=== PATIENT | male | born 1965 | race Caucasian/White ===

== ENCOUNTER 2023-09-27 08:19 | Day surgery (SDC) | payer BC ==
[~2023-09-27] VITALS: Ht 172.7 cm; Wt 97.3 kg
[~2023-09-27 08:19] MED LIST: ALBU90OI INH; LISI5 PO; Lactated Ringer's 1,000 ML IV ONE
[2023-09-27] MEDS ORDERED: propofoL 50 ML IV ONE (08:50)
[2023-09-27] MEDS ORDERED: Lactated Ringer's 1,000 ML IV ONE (09:15)
[2023-09-27] MEDS ORDERED: FentaNYL Citrate 50 MCG/ML 2 ML Injection ONE (09:29)
[2023-09-27] MEDS ORDERED: ePHEDrine Sulfate 50 MG/ML 1ML Injection ONE (09:51)
[2023-09-27 10:19] VITALS: BP 114/90
== END 2023-09-27 10:19 | disposition home or self-care (01) ==
LOC: ORSCSDS 08:19
PROVIDERS: Internal Medicine Gastroenterology
PROC: 0DBK8ZX Excision of Ascending Colon, Via Natural or Artificial Opening Endoscopic, Diagnostic (ICD-10-PCS; principal; 2023-09-27 09:30)
DX: Z12.11 Encounter for screening for malignant neoplasm of colon (principal); Z86.010 Personal history of colon polyps; D12.2 Benign neoplasm of ascending colon; K63.5 Polyp of colon; K57.30 Diverticulosis of large intestine without perforation or abscess without bleeding; K64.8 Other hemorrhoids; I10 Essential (primary) hypertension; G47.33 Obstructive sleep apnea (adult) (pediatric); Z79.899 Other long term (current) drug therapy; Z68.33 Body mass index [BMI] 33.0-33.9, adult
CPT/HCPCS: 88305; J2704; J3010; J7120